=== PATIENT | female | born 1980 | race Two or more races ===

== ENCOUNTER 2018-08-26 15:44 | Outpatient (CLI) | payer OTHER | END 2018-08-26 16:00 | disposition home or self-care (01) | LOC: RAD 15:44 | DX: M79.644 Pain in right finger(s) (principal) ==

== ENCOUNTER 2022-11-29 06:30 | Day surgery (SDC) | payer OTHER ==
[~2022-11-29] VITALS: Ht 162.6 cm; Wt 70.8 kg
[~2022-11-29 06:30] MED LIST: BIOTIN1 M1 PO; DIALYVITE 800-1 EACH PO; MAGNESIUM200 MG PO; MULTIPLE VITAM1 EAC2 PO; TURMERIC 500 M1 EACH PO; VITAMIN C100 MG PO
[2022-11-29] MEDS ORDERED: IBU600 MG PO (11:27)
[2022-11-29] MEDS ORDERED: MORGIDOX100 MG PO (11:27)
== END 2022-11-29 15:15 | disposition home or self-care (01) ==
LOC: CIR.AMB 06:30
PROVIDERS: ATTEND Obstetrics & Gynecology
DX: D25.0 Submucous leiomyoma of uterus (principal); N92.0 Excessive and frequent menstruation with regular cycle; N84.0 Polyp of corpus uteri; Z20.822 Contact with and (suspected) exposure to COVID-19